=== PATIENT | male | born 1935 | race Caucasian/White ===

== ENCOUNTER 2018-07-18 08:20 | Day surgery (SDC) | payer MEDICARE, OTHER ==
[~2018-07-18 08:20] MED LIST: CEFAZOLIN 2 GM/50 ML (PMX) 50 ML IVPB; SOD CHLORIDE 0.9% 1,000 ML IV
[2018-07-18] MEDS ORDERED: PROPOFOL 40 ML (09:46)
[2018-07-18] MEDS ORDERED: FENTAnyl 50 MCG/ML VIAL (09:46)
[2018-07-18] MEDS ORDERED: CEFAZOLIN 1 GM INJ (09:47)
[2018-07-18] MEDS ORDERED: METOPROLOL 5 MG INJ (10:52)
[2018-07-18] MEDS ORDERED: FENTAnyl 50 MCG/ML VIAL IV (11:00)
[2018-07-18] MEDS ORDERED: ATROPINE 1 MG/10 ML SYRINGE IV (11:00)
[2018-07-18] MEDS ORDERED: LABETALOL HCL 20MG INJ IV (11:00)
[2018-07-18] MEDS ORDERED: ALBUTEROL 0.083% (NEB) 2.5 MG/3 ML AMP HHN (11:00)
[2018-07-18] MEDS ORDERED: HYDROmorphONE 1 MG/5 ML IV SYRINGE IV (11:00)
[2018-07-18] MEDS ORDERED: EPHEDrine SULFATE 50 MG/5 ML SYG IV (11:00)
[2018-07-18] MEDS ORDERED: OXYCODONE/ACETAMINOPHEN (5/325) TAB PO (11:00)
[2018-07-18] MEDS ORDERED: DIPHENHYDRAMINE 50 MG INJ IV (11:00)
[2018-07-18] MEDS ORDERED: hydrALAzine 20 MG INJ IV (11:00)
[2018-07-18] MEDS ORDERED: morphine (1 MG/ML) 10ML SYRINGE IV (11:00)
[2018-07-18] MEDS ORDERED: ONDANSETRON 4 MG INJ IV ×2 (11:00→11:30)
[2018-07-18] MEDS: BUPIVACAINE 0.25% (MPF) 30 ML INJ (11:06)
[2018-07-18] MEDS: LIDOCAINE 1% (STERILE-PAK) 30 ML INJ (11:06)
[2018-07-18] MEDS ORDERED: ACETAMINOPHEN 325 MG TAB PO (11:30)
== END 2018-07-18 12:40 | disposition home or self-care (01) ==
LOC: SDS 08:20
DX: D36.13 Benign neoplasm of peripheral nerves and autonomic nervous system of lower limb, including hip (principal)
CPT/HCPCS: 64784; 88307